=== PATIENT | male | born 1960 | race Caucasian/White ===

== ENCOUNTER 2023-10-25 20:04 | Observation (INO) ==
--- NOTE | 2023-10-25 20:46 | Emergency Department Note ---
Impression & Plan Abdominal pain ADMIT ED Provider Note HPI: History obtained from patient and patient's son at the bedside. The patient is a 63-year-old gentleman with history of metastatic prostate cancer, recently taken off chemo and radiation therapy with plan now for hospice care, presents the emergency department with lower abdominal pain that has been severe over about the past 36 hours. Patient presents with his son at the bedside who is also the POA. He states that his father developed this pain since last night and it has progressively been getting worse. He states they are in the process of planning for hospice care however he is not officially on hospice as of yet. On arrival here to the ED the patient is hemodynamically stable. ROS: - Per HPI Differential Diagnosis: Small bowel obstruction, abdominal pain secondary to metastatic cancer, peritoneal carcinomatosis, rectal mass, amongst other potential pathologies. *Outpatient medications and allergy history reviewed. PE: General: Alert, listless appearing HEENT: Normocephalic, trachea midline Eyes: Extraocular eye movement is intact, no scleral erythema Pulmonary: Clear to auscultation bilaterally, no wheezing Cardio: Regular rate and rhythm GI: Moderate to severe distention of the abdomen that is tender to palpation without rigidity : No suprapubic tenderness MSK: No evidence of trauma or malformation of the extremities, no edema Skin: No evidence of rash Neuro: Alert, no focal deficits Psychiatric: Cooperative INDEPENDENT INTERPRETATIONS: commissioning editor: (As interpreted by myself): - An order was placed for continuous cardiac monitoring - Patient was noted to be in sinus rhythm with a rate of 95 EKG: (As interpreted by myself): Rate: 105 Rhythm: Sinus tachycardia Intervals: Within normal limits ST changes: No ST elevation Time: 2028 Interventions provided in ED: -IV morphine, normal saline with potassium Medical Decision Making: IV was established and lab work obtained, patient was placed on systems security consultant. Lab work shows no leukocytosis, hemoglobin is stable at 10.3, platelet count is slightly elevated at 468, CMP shows hypokalemia 2.9, otherwise no critical findings are noted, troponin is negative. EKG does not show any acute ischemic changes. Patient does have significant abdominal distention on exam, CT imaging of the abdomen pelvis was obtained that shows evidence of a necrotic appearing rectal mass causing distention of the colon filled with stool and gas. I suspect this is the source of the patient's discomfort. I discussed all the above findings with the patient and his son at the bedside. At this time the patient's son states that the goal is comfort measures only. He states that they would like to arrange hospice at home so that the patient can pass peacefully at home as is his wish. At this time I do feel the patient will require admission for pain control with IV medications until home hospice can be arranged. Patient's son is in agreement. I discussed the patient's presentation with the on-call hospitalist, Dr. Brewster, and the patient was placed for admission in stable condition. Consultants/Discussions held with other healthcare providers: -Hospitalist, Dr. Brewster Disposition discussion held by myself with: -Patient and patient's son at the bedside Diagnosis: 1. History of metastatic prostate cancer 2. Large bowel obstruction secondary to rectal mass 3. Abdominal pain, acute on chronic Disposition: ADMIT Lowell Topete DO Emergency Medicine Past Med/Surg History Problem List (Updated 10/25/23 @ 23:55 by Lowell Topete DO) Abdominal pain (Acute) Social History Smoking Status: Current some day smoker Feels Safe at Home: Yes Allergies Allergies Allergy/AdvReac Type Severity Reaction Status Date / Time [id number] Allergy Unknown Uncoded 05/17/04 00:45 Home Meds Home Medications Medication Instructions Recorded Confirmed nitrofurantoin macrocrystal 50 mg 50 mg PO QID 10/25/23 10/25/23 capsule oxycodone 5 mg tablet 5 mg PO Q6H PRN Pain 10/25/23 10/25/23 polyethylene glycol 3350 17 gram 17 g PO DAILY 10/25/23 10/25/23 oral powder packet (Miralax) Results & Data (ED) Vital Signs Vital Signs - 24 hr 10/25/23 20:08 10/25/23 20:22 10/25/23 20:23 Temperature 36.7 C Temperature Source Temporal Artery Scan Pulse Rate 126 H 103 H Pulse Rate [Apical] 104 H Pulse Rhythm Regular Pulse Strength Normal Respiratory Rate 20 15 16 Respiratory Effort / Characteristics Non-Labored Spontaneous Blood Pressure 127/77 Blood Pressure [Left Arm] Blood Pressure Mean 93 Blood Pressure Mean [Left Arm] Blood Pressure Position Sitting Pulse Oximetry 97 97 97 Oxygen Delivery Method Room Air Room Air Room Air Sepsis Recent Fever Within 48 Hours No Sepsis New/Unexplained Change in Mental Status N/A Sepsis Action Taken by Nursing No Action Required 10/25/23 20:25 10/25/23 20:27 10/25/23 21:39 Temperature Temperature Source Pulse Rate 103 H Pulse Rate [Apical] 99 H 94 H Pulse Rhythm Pulse Strength Respiratory Rate 18 22 Respiratory Effort / Characteristics Blood Pressure Blood Pressure [Left Arm] 134/83 146/78 H Blood Pressure Mean Blood Pressure Mean [Left Arm] 100 100 Blood Pressure Position Pulse Oximetry 97 99 Oxygen Delivery Method Room Air Room Air Sepsis Recent Fever Within 48 Hours Sepsis New/Unexplained Change in Mental Status Sepsis Action Taken by Nursing 10/25/23 22:00 10/25/23 23:00 Temperature Temperature Source Pulse Rate Pulse Rate [Apical] 90 100 H Pulse Rhythm Pulse Strength Respiratory Rate 20 15 Respiratory Effort / Characteristics Blood Pressure Blood Pressure [Left Arm] 148/75 H 145/80 H Blood Pressure Mean Blood Pressure Mean [Left Arm] 99 101 Blood Pressure Position Pulse Oximetry 97 97 Oxygen Delivery Method Room Air Room Air Sepsis Recent Fever Within 48 Hours Sepsis New/Unexplained Change in Mental Status Sepsis Action Taken by Nursing Laboratory Data 10/25/23 20:35 10/25/23 20:35 Lab Results 10/25/23 Range/Units 20:35 WBC 10.48 (4.8-10.8) K/ul RBC 3.45 L (4.70-6.10) M/uL Hgb 10.3 L (14.0-18.0) g/dl Hct 31.1 L (42.0-52.0) % MCV 90.1 (80.0-100.0) fL MCH 29.9 (25.0-34.0) pg MCHC 33.1 (32.0-36.0) g/dL RDW Std Deviation 43.1 (36.4-46.3) fL RDW Coeff of Surinder 13.2 (11.5-14.5) % Plt Count 468 H (130-400) K/uL MPV 10.1 (9.4-12.4) fL Immature Gran % (Auto) 0.4 % Neut % (Auto) 73.9 % Lymph % (Auto) 17.0 % Rock % (Auto) 7.3 % Eos % (Auto) 1.0 % Baso % (Auto) 0.4 % Neut # (Auto) 7.75 H (1.40-6.50) K/uL Lymph # (Auto) 1.78 (1.20-3.40) K/uL Rock # (Auto) 0.76 H (0.11-0.59) K/uL Eos # (Auto) 0.11 (0.00-0.50) K/uL Baso # (Auto) 0.04 (0.00-0.20) K/uL Immature Gran # (Auto) 0.04 (0.01-0.20) K/uL PT 10.9 (9.0-12.0) Seconds INR 1.0 (0.9-1.1) Sodium 135 L (136-145) mmol/L Potassium 2.9 L (3.5-5.1) mmol/L Chloride 104 (98-107) mmol/L Carbon Dioxide 24 (21-32) mmol/L Anion Gap 7 (3-11) BUN 12 (6-23) mg/dl Creatinine 0.52 L (0.6-1.4) mg/dl Est Cr Clr Drug Dosing 140.3 ml/min Est GFR ( Amer) 130.6 ml/min Est GFR (Non-Af Amer) 112.7 ml/min BUN/Creatinine Ratio 23.1 H (10-20) Glucose 111 H (70-99(Fasting)) mg/dl Lactate 1.1 (0.4-2.0) mmol/L Calcium 8.2 L (8.6-10.3) mg/dl Total Bilirubin 0.4 (0.2-1.0) mg/dl AST 16 (13-39) U/L ALT 5 L (7-52) U/L Alkaline Phosphatase 78 (34-104) U/L Troponin I High Sens 4.7 (0-20) pg/ml Total Protein 5.3 L (6.0-8.3) gm/dl Albumin 3.1 L (3.4-5.0) gm/dl Globulin 2.2 L (2.5-4.0) gm/dl Albumin/Globulin Ratio 1.4 (0.9-2) Lipase 8 L (11-82) U/L Administered Medications Potassium Chloride/Sodium Chloride (Normal Saline W/20 Meq Kcl) 20 meq in 1,000 mls @ 200 mls/hr IV .Q5H [facility]; Protocol Stop: 11/24/23 22:14 Last Admin: 10/25/23 22:22 Dose: 200 mls/hr Documented By: ARMANDO Discontinued Medications Sodium Chloride (Nss) 1,000 mls @ 999 mls/hr IV .Q1H1M ONE Stop: 10/25/23 21:38 Last Infusion: 10/25/23 21:54 Dose: Infused Documented By: Admin: 10/25/23 20:48 Dose: 999 mls/hr Documented By: ARMANDO Ioversol (Optiray 320 100ml) 91 ml IV ONCE ONE Stop: 10/25/23 21:57 Last Admin: 10/25/23 21:57 Dose: 91 ml Documented By: HOWARD Morphine Sulfate (Morphine Sulfate 4 Mg/Ml 1 Ml Carp\Vial) 4 mg IV NOW STA Stop: 10/25/23 20:39 Last Admin: 10/25/23 20:47 Dose: 4 mg Documented By: ARMANDO Imaging Data Radiologist's Impression: Abdomen/Pelvis CT 10/25/23 20:38 Exam(s): CT ABDOMEN + PELVIS With Contrast IV Amt: 91ml EXAM: CT Abdomen and Pelvis With Intravenous Contrast CLINICAL HISTORY: Abdominal Pain/distention, hx of metastatic CA. TECHNIQUE: Axial computed tomography images of the abdomen and pelvis with intravenous contrast. CTDI is 19.56 mGy and DLP is 1079.28 mGy-cm. Automated exposure control was utilized for the study. A dose lowering technique was utilized adhering to the principles of ALARA. CONTRAST: Patient received 91ml of IV contrast COMPARISON: No relevant prior studies available. FINDINGS: Lung bases: Unremarkable. No mass. No consolidation. ABDOMEN: Liver: Mild intrahepatic delay ductal dilatation is nonspecific. Gallbladder and bile ducts: Unremarkable. No calcified stones. No ductal dilation. Pancreas: Unremarkable. No mass. No ductal dilation. Spleen: Unremarkable. No splenomegaly. Adrenals: Unremarkable. No mass. Kidneys and ureters: Unremarkable. No solid mass. No hydronephrosis. Stomach and bowel: There is a heterogeneous and presumed partially necrotic mass of the rectum measuring 11.5 x 10.7 cm. This results in significant distention of the colon with gas and stool. The rectal mass abuts the decompressed urinary bladder. Diverticulosis. PELVIS: Appendix: Normal appendix. Bladder: A Scherer catheter is noted. Reproductive: Unremarkable as visualized. ABDOMEN and PELVIS: Intraperitoneal space: A small moderate free fluid in the abdomen and pelvis is nonspecific. No free air. Bones/joints: No acute fracture. No dislocation. Soft tissues: Unremarkable. Vasculature: Moderate atherosclerosis. No abdominal aortic aneurysm. Lymph nodes: Unremarkable. No enlarged lymph nodes. IMPRESSION: 1. There is a heterogeneous and presumed partially necrotic mass of the rectum measuring 11.5 x 10.7 cm. This results in significant distention of the colon with gas and stool. No evidence of perforation. 2. The rectal mass abuts the decompressed urinary bladder. Cannot exclude fistula. 3. A small moderate free fluid in the abdomen and pelvis is nonspecific. 4. Mild intrahepatic delay ductal dilatation is nonspecific. 5. Diverticulosis. Electronically signed by: Camryn Cummings MD 10/25/23 22:53 PM Discharge Plan Visit Data Chief Complaint: Constipation Stated Complaint: CANCER PATIENT, ABD PAIN/FIRM, UTI, CONSTIPATION ED Provider: Lowell Topete Discharge Problem: Abdominal pain Forms Stand Alone [facility]: [facility] Prescriptions Prescriptions: No Action nitrofurantoin macrocrystal 50 mg Capsule 50 mg PO QID polyethylene glycol 3350 [Miralax] 17 gram Powder In Packet 17 g PO DAILY oxycodone 5 mg Tablet 5 mg PO Q6H PRN (Reason: Pain) Referrals Referrals: Lukas Valiente [Primary Care Provider] -
[2023-10-25] MEDS: MoRPHine SULFATE 4 MG/ML 1 ML CARP\\VIAL IV STA (20:47)
[2023-10-25] MEDS: SODIUM CHLORIDE 0.9% 1,000 ML IV ONE (20:48)
[2023-10-25 21:15] LABS: Albumin Globulin Ratio 1.4 (0.9-2); Albumin Level 3.1 gm/dl (3.4-5.0); BUN Creatinine Ratio 23.1 (10-20); Bilirubin,Total 0.4 mg/dl (0.2-1.0); Calcium 8.2 mg/dl (8.6-10.3); Creatinine Clr Calc Pharmacy 140.3 ml/min; Est GFR (African American) 130.6 ml/min; Est GFR (Non-African American) 112.7 ml/min; Globulin 2.2 gm/dl (2.5-4.0); Potassium 2.9 mmol/L (3.5-5.1); Total Protein 5.3 gm/dl (6.0-8.3)
[2023-10-25 21:19] LABS: Basophils # (auto) 0.04 K/uL (0.00-0.20); Basophils % (auto) 0.4 %; Eosinophils # (auto) 0.11 K/uL (0.00-0.50); Hematocrit (blood only) 31.1 % (42.0-52.0); Hemoglobin 10.3 g/dl (14.0-18.0); Immature Granulocytes # (auto) 0.04 K/uL (0.01-0.20); Immature Granulocytes % (auto) 0.4 %; Lymphocytes # (auto) 1.78 K/uL (1.20-3.40); Mean Corpuscular Hemoglobin 29.9 pg (25.0-34.0); Mean Corpuscular Hgb Conc 33.1 g/dL (32.0-36.0); Mean Corpuscular Volume 90.1 fL (80.0-100.0); Mean Platelet Volume 10.1 fL (9.4-12.4); Monocytes # (auto) 0.76 K/uL (0.11-0.59); Monocytes % (auto) 7.3 %; Neutrophils # (auto) 7.75 K/uL (1.40-6.50); Neutrophils % (auto) 73.9 %; Platelet Count 468 K/uL (130-400); RDW Coefficient of Variation 13.2 % (11.5-14.5); RDW Standard Deviation 43.1 fL (36.4-46.3); Red Blood Count 3.45 M/uL (4.70-6.10); White Blood Count 10.48 K/ul (4.8-10.8)
[2023-10-25 21:22] LABS: Troponin I High Sensitivity 4.7 pg/ml (0-20)
[2023-10-25 21:25] LABS: Prothrombin Time 10.9 Seconds (9.0-12.0)
[2023-10-25] MEDS: OPTIRAY 320 100ml IV ONE (21:57)
[2023-10-25] MEDS: NSS + 20MEQ KCL 20 MEQ/1,000 ML BAG IV SCH (22:22)
--- NOTE | 2023-10-25 22:53 | CT Scan Report ---
Exam(s): CT ABDOMEN + PELVIS With Contrast IV Amt: 91ml EXAM: CT Abdomen and Pelvis With Intravenous Contrast CLINICAL HISTORY: Abdominal Pain/distention, hx of metastatic CA. TECHNIQUE: Axial computed tomography images of the abdomen and pelvis with intravenous contrast. CTDI is 19.56 mGy and DLP is 1079.28 mGy-cm. Automated exposure control was utilized for the study. A dose lowering technique was utilized adhering to the principles of ALARA. CONTRAST: Patient received 91ml of IV contrast COMPARISON: No relevant prior studies available. FINDINGS: Lung bases: Unremarkable. No mass. No consolidation. ABDOMEN: Liver: Mild intrahepatic delay ductal dilatation is nonspecific. Gallbladder and bile ducts: Unremarkable. No calcified stones. No ductal dilation. Pancreas: Unremarkable. No mass. No ductal dilation. Spleen: Unremarkable. No splenomegaly. Adrenals: Unremarkable. No mass. Kidneys and ureters: Unremarkable. No solid mass. No hydronephrosis. Stomach and bowel: There is a heterogeneous and presumed partially necrotic mass of the rectum measuring 11.5 x 10.7 cm. This results in significant distention of the colon with gas and stool. The rectal mass abuts the decompressed urinary bladder. Diverticulosis. PELVIS: Appendix: Normal appendix. Bladder: A Scherer catheter is noted. Reproductive: Unremarkable as visualized. ABDOMEN and PELVIS: Intraperitoneal space: A small moderate free fluid in the abdomen and pelvis is nonspecific. No free air. Bones/joints: No acute fracture. No dislocation. Soft tissues: Unremarkable. Vasculature: Moderate atherosclerosis. No abdominal aortic aneurysm. Lymph nodes: Unremarkable. No enlarged lymph nodes. IMPRESSION: 1. There is a heterogeneous and presumed partially necrotic mass of the rectum measuring 11.5 x 10.7 cm. This results in significant distention of the colon with gas and stool. No evidence of perforation. 2. The rectal mass abuts the decompressed urinary bladder. Cannot exclude fistula. 3. A small moderate free fluid in the abdomen and pelvis is nonspecific. 4. Mild intrahepatic delay ductal dilatation is nonspecific. 5. Diverticulosis. Electronically signed by: Camryn Cummings MD 10/25/23 22:53 PM
--- NOTE | 2023-10-26 01:01 | History & Physical Report ---
Date of Service October 26, 2023 Assessment & Plan (1) Primary prostate cancer with metastasis from prostate to other site: Plan: Colonic and bladder extension as per family chronic systolic heart failure recurrent UTIs/history of rectovesical fistula, ongoing Macrobid Rx past tobacco/alcohol abuse OBS GMF Comfort care until home hospice arrangements in place Social service re: discharge planning once home hospice arrangements in place DNR as per prior directives Patient's son requesting updates providers. Mr. Antonino Dubois, contact #[phone]. Text document was generated using [employer] voice recognition software. It may contain grammatical or spelling errors. Kindly contact undersigned for clarification of any documentation item in question. History of Present Illness Chief Complaint: Abdominal pain Primary Care Provider: [facility] History obtained from patient, family, and records. History somewhat limited from patient secondary to confusion. Medical history significant for chronic systolic heart failure, metastatic prostate cancer status post Rx (possible colon and bladder spread as per family), recurrent UTIs, history of rectovesical fistula, past tobacco/alcohol abuse. Patient diagnosed to have prostate cancer 3 years ago. Initially treated with oral medications as per son. Prostate cancer became treatment resistant last year as per family. 3 months ago, family made aware of possible spread to the colon. Patient admitted at [facility] 2 months ago for septic shock secondary to possible perforated bowel. Patient discharged to home hospice because patient doctors did not think he would be a good surgical candidate for extensive cancer surgery. Patient dis-enrolled from hospice last month because he wanted to try taking pills for his cancer again. Recent admission at the [facility] in [place] few days ago for recurrent UTI. Patient discharged home on Macrobid course for unrecalled pathogen. Palliative care and home hospice re-enrollment recommended on discharge. Patient and family supposed to meet with [facility] hospice agency at home today for initial intake. Patient experienced unbearable abdominal pain at home tonight. Home oxycodone pill not enough as per family. Denies chest pain, SOB. Bowel incontinence and persistent hematuria as per son. Patient has had episodic confusion/cognitive issues following confinement at [facility] months ago. Patient brought to ER for evaluation. Patient family requesting for patient admission for comfort care until home hospice arrangements in place. 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[employer] Allergies Allergy/AdvReac Type Severity Reaction Status Date / Time No Known Allergies Allergy Verified 10/26/23 01:48 Home Medications Medication Instructions Recorded Confirmed Type nitrofurantoin macrocrystal 50 mg 50 mg PO QID 10/25/23 10/25/23 History capsule oxycodone 5 mg tablet 5 mg PO Q6H PRN Pain 10/25/23 10/25/23 History polyethylene glycol 3350 17 gram 17 g PO DAILY 10/25/23 10/25/23 History oral powder packet (Miralax) Past Med/Surg History Problem List (Updated 10/26/23 @ 04:04 by Efrain Brewster MD) Primary prostate cancer with metastasis from prostate to other site Abdominal pain (Acute) Social History Smoking Status: Current some day smoker Feels Safe at Home: Yes Review of Systems Review of Systems: As per HPI, all other systems reviewed and negative Physical Exam Physical Exam: GENERAL: Episodic confusion, slightly hard of hearing, chronically ill, no respiratory distress SKIN: Pallor, warm HEENT: Pale palpebral conjunctivae, no ptosis, dry buccal mucosa NECK : Supple, no tenderness CHEST : Decreased breath sounds, no tenderness HEART : RRR, no obvious murmurs ABDOMEN: Marked abdominal distention, hypogastric tenderness EXTREMITIES : No LE swelling/tenderness, no other conspicuous deformities noted NEUROLOGIC : Episodic confusion, no facial asymmetry, mild hearing impairment, no other gross focality Results & Data Results & Data Vital Signs (Past 12 Hours) Vital Signs Temp Pulse Pulse Resp BP BP Pulse Ox 10/26/23 00:28 96 H 10/26/23 00:01 98 H 18 141/88 H 97 10/25/23 23:00 100 H 15 145/80 H 97 10/25/23 22:00 90 20 148/75 H 97 10/25/23 21:39 94 H 22 146/78 H 99 10/25/23 20:27 103 H 10/25/23 20:25 99 H 18 134/83 97 10/25/23 20:23 103 H 16 97 10/25/23 20:22 104 H 15 97 10/25/23 20:08 36.7 C 126 H 20 127/77 97 O2 Del Method 10/26/23 00:28 10/26/23 00:01 Room Air 10/25/23 23:00 Room Air 10/25/23 22:00 Room Air 10/25/23 21:39 Room Air 10/25/23 20:27 10/25/23 20:25 Room Air 10/25/23 20:23 Room Air 10/25/23 20:22 Room Air 10/25/23 20:08 Room Air Laboratory Results Laboratory Results WBC 10.48 K/ul (4.8-10.8) 10/25/23 20:35 RBC 3.45 M/uL (4.70-6.10) L 10/25/23 20:35 Hgb 10.3 g/dl (14.0-18.0) L 10/25/23 20:35 Hct 31.1 % (42.0-52.0) L 10/25/23 20:35 MCV 90.1 fL (80.0-100.0) 10/25/23 20:35 MCH 29.9 pg (25.0-34.0) 10/25/23 20:35 MCHC 33.1 g/dL (32.0-36.0) 10/25/23 20:35 RDW Std Deviation 43.1 fL (36.4-46.3) 10/25/23 20:35 RDW Coeff of Surinder 13.2 % (11.5-14.5) 10/25/23 20:35 Plt Count 468 K/uL (130-400) H 10/25/23 20:35 MPV 10.1 fL (9.4-12.4) 10/25/23 20:35 Immature Gran % (Auto) 0.4 % 10/25/23 20:35 Neut % (Auto) 73.9 % 10/25/23 20:35 Lymph % (Auto) 17.0 % 10/25/23 20:35 Addison % (Auto) 7.3 % 10/25/23 20:35 Eos % (Auto) 1.0 % 10/25/23 20:35 Baso % (Auto) 0.4 % 10/25/23 20:35 Neut # (Auto) 7.75 K/uL (1.40-6.50) H 10/25/23 20:35 Lymph # (Auto) 1.78 K/uL (1.20-3.40) 10/25/23 20:35 Addison # (Auto) 0.76 K/uL (0.11-0.59) H 10/25/23 20:35 Eos # (Auto) 0.11 K/uL (0.00-0.50) 10/25/23 20:35 Baso # (Auto) 0.04 K/uL (0.00-0.20) 10/25/23 20:35 Immature Gran # (Auto) 0.04 K/uL (0.01-0.20) 10/25/23 20:35 PT 10.9 Seconds (9.0-12.0) 10/25/23 20:35 INR 1.0 (0.9-1.1) 10/25/23 20:35 Sodium 135 mmol/L (136-145) L 10/25/23 20:35 Potassium 2.9 mmol/L (3.5-5.1) L 10/25/23 20:35 Chloride 104 mmol/L (98-107) 10/25/23 20:35 Carbon Dioxide 24 mmol/L (21-32) 10/25/23 20:35 Anion Gap 7 (3-11) 10/25/23 20:35 BUN 12 mg/dl (6-23) 10/25/23 20:35 Creatinine 0.52 mg/dl (0.6-1.4) L 10/25/23 20:35 Est Cr Clr Drug Dosing 140.3 ml/min 10/25/23 20:35 Est GFR ( Amer) 130.6 ml/min 10/25/23 20:35 Est GFR (Non-Af Amer) 112.7 ml/min 10/25/23 20:35 BUN/Creatinine Ratio 23.1 (10-20) H 10/25/23 20:35 Glucose 111 mg/dl (70-99(Fasting)) H 10/25/23 20:35 Lactate 1.1 mmol/L (0.4-2.0) 10/25/23 20:35 Calcium 8.2 mg/dl (8.6-10.3) L 10/25/23 20:35 Total Bilirubin 0.4 mg/dl (0.2-1.0) 10/25/23 20:35 AST 16 U/L (13-39) 10/25/23 20:35 ALT 5 U/L (7-52) L 10/25/23 20:35 Alkaline Phosphatase 78 U/L (34-104) 10/25/23 20:35 Troponin I High Sens 4.7 pg/ml (0-20) 10/25/23 20:35 Total Protein 5.3 gm/dl (6.0-8.3) L 10/25/23 20:35 Albumin 3.1 gm/dl (3.4-5.0) L 10/25/23 20:35 Globulin 2.2 gm/dl (2.5-4.0) L 10/25/23 20:35 Albumin/Globulin Ratio 1.4 (0.9-2) 10/25/23 20:35 Lipase 8 U/L (11-82) L 10/25/23 20:35 Impressions Abdomen/Pelvis CT 10/25/23 20:38 Exam(s): CT ABDOMEN + PELVIS With Contrast IV Amt: 91ml EXAM: CT Abdomen and Pelvis With Intravenous Contrast CLINICAL HISTORY: Abdominal Pain/distention, hx of metastatic CA. TECHNIQUE: Axial computed tomography images of the abdomen and pelvis with intravenous contrast. CTDI is 19.56 mGy and DLP is 1079.28 mGy-cm. Automated exposure control was utilized for the study. A dose lowering technique was utilized adhering to the principles of ALARA. CONTRAST: Patient received 91ml of IV contrast COMPARISON: No relevant prior studies available. FINDINGS: Lung bases: Unremarkable. No mass. No consolidation. ABDOMEN: Liver: Mild intrahepatic delay ductal dilatation is nonspecific. Gallbladder and bile ducts: Unremarkable. No calcified stones. No ductal dilation. Pancreas: Unremarkable. No mass. No ductal dilation. Spleen: Unremarkable. No splenomegaly. Adrenals: Unremarkable. No mass. Kidneys and ureters: Unremarkable. No solid mass. No hydronephrosis. Stomach and bowel: There is a heterogeneous and presumed partially necrotic mass of the rectum measuring 11.5 x 10.7 cm. This results in significant distention of the colon with gas and stool. The rectal mass abuts the decompressed urinary bladder. Diverticulosis. PELVIS: Appendix: Normal appendix. Bladder: A Scherer catheter is noted. Reproductive: Unremarkable as visualized. ABDOMEN and PELVIS: Intraperitoneal space: A small moderate free fluid in the abdomen and pelvis is nonspecific. No free air. Bones/joints: No acute fracture. No dislocation. Soft tissues: Unremarkable. Vasculature: Moderate atherosclerosis. No abdominal aortic aneurysm. Lymph nodes: Unremarkable. No enlarged lymph nodes. IMPRESSION: 1. There is a heterogeneous and presumed partially necrotic mass of the rectum measuring 11.5 x 10.7 cm. This results in significant distention of the colon with gas and stool. No evidence of perforation. 2. The rectal mass abuts the decompressed urinary bladder. Cannot exclude fistula. 3. A small moderate free fluid in the abdomen and pelvis is nonspecific. 4. Mild intrahepatic delay ductal dilatation is nonspecific. 5. Diverticulosis. Electronically signed by: Camryn Cummings MD 10/25/23 22:53 PM Diagnostic Findings EKG as per my interpretation : Rate 105, sinus tachycardia, normal axis, nonspecific T wave abnormalities
[2023-10-26] MEDS ORDERED: LORazepam 0.5 MG in SYRINGE 0.5 ML IV PRN (01:05)
[2023-10-26] MEDS ORDERED: MoRPHine SULFATE 4 MG/ML 1 ML CARP\\VIAL IV PRN (01:05)
[2023-10-26] MEDS ORDERED: ONDANSETRON INJ 2 MG/ML 2 ML VIAL IV PRN (01:05)
[2023-10-26] MEDS: Patient's ALLERGY Info needs ENTERED STA (01:51)
[2023-10-26] MEDS: NSS + 20MEQ KCL 20 MEQ/1,000 ML BAG IV ONE (01:53)
[2023-10-26] MEDS: MoRPHine SULFATE 4 MG/ML 1 ML CARP\\VIAL IV STA (01:53)
[2023-10-26] MEDS: MoRPHine SULFATE 4 MG/ML 1 ML CARP\\VIAL IV PRN (03:46)
[2023-10-26] MEDS: nitrofurantoin macrocrystaL 50 MG CAP PO SCH (07:44)
--- NOTE | 2023-10-26 08:54 | Palliative Care Consultation ---
Date of Consultation October 26, 2023 Assessment & Plan (1) Cancer related pain: As needed morphine is providing adequate relief. Patient feels significant relief since a large bowel movement early this morning. (2) Dyspnea and respiratory abnormalities: (3) Encounter for end of life care: (4) Need for comfort care: (5) Palliative care by specialist: Plan * Gato does not want any changes to his current regimen. * Vineet advised they have morphine at home and do not need any prescriptions at this time. He has spoken with hospice who advised they can see patient today at 2 PM for admission to home hospice. He would like a discharge coordinated so that he is able to make the 2:00 appointment with hospice at home. * I have updated primary team and case management. Thank you for allowing us to participate in the ongoing care of this patient. Please page with any additional concerns. Rinku Elizabeth DNP Director, Palliative Medicine History of Present Illness Reason for Consultation: comfort care Attending Physician: German Manley MD History of Present Illness Gato is a 63yo gentleman with history of metastatic prostate cancer, recently taken off chemo and radiation therapy with plan now for hospice care, presents the emergency department with lower abdominal pain that has been severe over about the past 36 hours. pt son had advised ED that they are in the process of planning for hospice care. PMH: chronic systolic heart failure; recurrent UTIs/history of rectovesical fistula, ongoing Macrobid Rx; past tobacco/alcohol abuse;OBS; GMF. Gato is seen at bedside together with his son Ambrose who is also his POA There is no other family present Gato had a significant bowel movement earlier this morning and since then, his abdominal pain has significantly improved. Ambrose suspects that overall the increased pain may have been due to a constipation. Ambrose shares the patient had been admitted to hospice, through [facility], in the past but then revoked hospice when he decided he wanted to pursue continued cancer directed therapy. Since that time, his condition has progressively declined and he has been advised by oncology that he is no longer candidate for cancer directed therapies and was recommended to pursue home care with hospice. Antonino was already contacted the hospice agency and plans to resume care with them. They have advised our care management team they can admit him today at 2 PM. Ambrose advises that he and dad would like to go home today as it would be more comfortable and provide a better quality of life. Allergies Allergy/AdvReac Type Severity Reaction Status Date / Time No Known Allergies Allergy Verified 10/26/23 01:48 Home Medications Medication Instructions Recorded Confirmed Type nitrofurantoin macrocrystal 50 mg 50 mg PO QID 10/25/23 10/25/23 History capsule oxycodone 5 mg tablet 5 mg PO Q6H PRN Pain 10/25/23 10/25/23 History polyethylene glycol 3350 17 gram 17 g PO DAILY 10/25/23 10/25/23 History oral powder packet (Miralax) Patient History Social History Smoking Status: Current some day smoker Tobacco Type: Cigarettes Hx Alcohol Use: No Hx Substance Use: No Preferred Language: Monegasque Communication Ability: Effective Software Development Manager Required: No Beliefs That Will Affect Care: None Current Living Situation: Family Current Living Situation Comment: living at home with son staying to help Feels Safe at Home: Yes Assistive Devices: None Review of Systems Review of Systems: Unobtainable due to cognitive status and Unobtainable due to reduced consciousness Physical Exam Physical Exam: Limited exam, patient did not allow for in-depth. He is resting in bed, no acute distress. There is bitemporal wasting. PERRLA, EOMI's. Neck is supple, no stridor. Respirations even and unlabored. There is no conversational dyspnea. Limited anterior exam reveals diminished but overall clear breath soun ds. Abdomen scaphoid but soft. Deconditioned throughout with generalized weakness. Muscle wasting noted. Skin is pale and somewhat cool to touch. There is no gross cyanosis or mottling. He is awake alert and oriented x 3. He is quite fatigued appearing. Results & Data Vital Signs (Past 12 Hours) Vital Signs Pulse Pulse Resp BP Pulse Ox O2 Del Method 10/26/23 07:50 Room Air 10/26/23 03:30 Room Air 10/26/23 02:14 95 H 20 96 Room Air 10/26/23 00:28 96 H 10/26/23 00:01 98 H 18 141/88 H 97 Room Air 10/25/23 23:00 100 H 15 145/80 H 97 Room Air 10/25/23 22:00 90 20 148/75 H 97 Room Air 10/25/23 21:39 94 H 22 146/78 H 99 Room Air Laboratory Results 10/25/23 Range/Units 20:35 WBC 10.48 (4.8-10.8) K/ul RBC 3.45 L (4.70-6.10) M/uL Hgb 10.3 L (14.0-18.0) g/dl Hct 31.1 L (42.0-52.0) % MCV 90.1 (80.0-100.0) fL MCH 29.9 (25.0-34.0) pg MCHC 33.1 (32.0-36.0) g/dL RDW Std Deviation 43.1 (36.4-46.3) fL RDW Coeff of Surinder 13.2 (11.5-14.5) % Plt Count 468 H (130-400) K/uL MPV 10.1 (9.4-12.4) fL Immature Gran % (Auto) 0.4 % Neut % (Auto) 73.9 % Lymph % (Auto) 17.0 % Glades % (Auto) 7.3 % Eos % (Auto) 1.0 % Baso % (Auto) 0.4 % Neut # (Auto) 7.75 H (1.40-6.50) K/uL Lymph # (Auto) 1.78 (1.20-3.40) K/uL Glades # (Auto) 0.76 H (0.11-0.59) K/uL Eos # (Auto) 0.11 (0.00-0.50) K/uL Baso # (Auto) 0.04 (0.00-0.20) K/uL Immature Gran # (Auto) 0.04 (0.01-0.20) K/uL PT 10.9 (9.0-12.0) Seconds INR 1.0 (0.9-1.1) Sodium 135 L (136-145) mmol/L Potassium 2.9 L (3.5-5.1) mmol/L Chloride 104 (98-107) mmol/L Carbon Dioxide 24 (21-32) mmol/L Anion Gap 7 (3-11) BUN 12 (6-23) mg/dl Creatinine 0.52 L (0.6-1.4) mg/dl Est Cr Clr Drug Dosing 140.3 ml/min Est GFR ( Amer) 130.6 ml/min Est GFR (Non-Af Amer) 112.7 ml/min BUN/Creatinine Ratio 23.1 H (10-20) Glucose 111 H (70-99(Fasting)) mg/dl Lactate 1.1 (0.4-2.0) mmol/L Calcium 8.2 L (8.6-10.3) mg/dl Total Bilirubin 0.4 (0.2-1.0) mg/dl AST 16 (13-39) U/L ALT 5 L (7-52) U/L Alkaline Phosphatase 78 (34-104) U/L Troponin I High Sens 4.7 (0-20) pg/ml Total Protein 5.3 L (6.0-8.3) gm/dl Albumin 3.1 L (3.4-5.0) gm/dl Globulin 2.2 L (2.5-4.0) gm/dl Albumin/Globulin Ratio 1.4 (0.9-2) Lipase 8 L (11-82) U/L Diagnostic Findings Abdomen/Pelvis CT 10/25/23 20:38 Exam(s): CT ABDOMEN + PELVIS With Contrast IV Amt: 91ml EXAM: CT Abdomen and Pelvis With Intravenous Contrast CLINICAL HISTORY: Abdominal Pain/distention, hx of metastatic CA. TECHNIQUE: Axial computed tomography images of the abdomen and pelvis with intravenous contrast. CTDI is 19.56 mGy and DLP is 1079.28 mGy-cm. Automated exposure control was utilized for the study. A dose lowering technique was utilized adhering to the principles of ALARA. CONTRAST: Patient received 91ml of IV contrast COMPARISON: No relevant prior studies available. FINDINGS: Lung bases: Unremarkable. No mass. No consolidation. ABDOMEN: Liver: Mild intrahepatic delay ductal dilatation is nonspecific. Gallbladder and bile ducts: Unremarkable. No calcified stones. No ductal dilation. Pancreas: Unremarkable. No mass. No ductal dilation. Spleen: Unremarkable. No splenomegaly. Adrenals: Unremarkable. No mass. Kidneys and ureters: Unremarkable. No solid mass. No hydronephrosis. Stomach and bowel: There is a heterogeneous and presumed partially necrotic mass of the rectum measuring 11.5 x 10.7 cm. This results in significant distention of the colon with gas and stool. The rectal mass abuts the decompressed urinary bladder. Diverticulosis. PELVIS: Appendix: Normal appendix. Bladder: A Scherer catheter is noted. Reproductive: Unremarkable as visualized. ABDOMEN and PELVIS: Intraperitoneal space: A small moderate free fluid in the abdomen and pelvis is nonspecific. No free air. Bones/joints: No acute fracture. No dislocation. Soft tissues: Unremarkable. Vasculature: Moderate atherosclerosis. No abdominal aortic aneurysm. Lymph nodes: Unremarkable. No enlarged lymph nodes. IMPRESSION: 1. There is a heterogeneous and presumed partially necrotic mass of the rectum measuring 11.5 x 10.7 cm. This results in significant distention of the colon with gas and stool. No evidence of perforation. 2. The rectal mass abuts the decompressed urinary bladder. Cannot exclude fistula. 3. A small moderate free fluid in the abdomen and pelvis is nonspecific. 4. Mild intrahepatic delay ductal dilatation is nonspecific. 5. Diverticulosis. Electronically signed by: Camryn Cummings MD 10/25/23 22:53 PM PG Care Time/CCT Total # of Minutes Spent Total Time Spent with Patient: Total time spent is greater than 50% in coordination of care (as documented) at patient's floor/unit and/or counseling patient: I spent 60 minutes overall addressing this case: 10 min in medical data review/discussion with referring provider(s) and/or preparation for the visit 15 min in direct interaction with the patient/exam 10 min in Advance Care Planning/Goals of Care discussions as detailed above in note (must be >16min) 10 min in subsequent review and synthesis of assessment and plan 15 min communicating with other providers regarding the patient's case: [place] [address] IN/OBS CONSULT LVL 4,60M Patient Type New History Comprehensive Exam Comprehensive Medical Decision Making High Complexity Diagnoses Cancer related pain G89.3 Dyspnea and respiratory abnormalities R06.00; R06.89 Encounter for end of life care Z51.5 Need for comfort care Palliative care by specialist Z51.5
--- NOTE | 2023-10-26 11:14 | Communication Note ---
Date of Service: October 26, 2023 Patient was seen and examined at bedside. Patient is currently under comfort care measures, patient has history of primary prostate cancer with metastasis from prostate to other site (possible colon and bladder spread). Patient reports being comfortable and pain fairly under control. Patient awaiting discharge to home with hospice. On examination, patient on room air, abdomen distended, mildly tender on exam, heart and lungs examination fairly WNL. For detailed information on the patient, refer to today's H&P note.
--- NOTE | 2023-10-26 12:05 | Discharge Summary ---
Date of Service October 26, 2023 Admission HPI Per Admitting Provider History obtained from patient, family, and records. History somewhat limited from patient secondary to confusion. Medical history significant for chronic systolic heart failure, metastatic prostate cancer status post Rx (possible colon and bladder spread as per family), recurrent UTIs, history of rectovesical fistula, past tobacco/alcohol abuse. Patient diagnosed to have prostate cancer 3 years ago. Initially treated with oral medications as per son. Prostate cancer became treatment resistant last year as per family. 3 months ago, family made aware of possible spread to the colon. Patient admitted at [facility] 2 months ago for septic shock secondary to possible perforated bowel. Patient discharged to home hospice because patient doctors did not think he would be a good surgical candidate for extensive cancer surgery. Patient dis-enrolled from hospice last month because he wanted to try taking pills for his cancer again. Recent admission at the [facility] in [place] few days ago for recurrent UTI. Patient discharged home on Macrobid course for unrecalled pathogen. Palliative care and home hospice re-enrollment recommended on discharge. Patient and family supposed to meet with [facility] hospice agency at home today for initial intake. Patient experienced unbearable abdominal pain at home tonight. Home oxycodone pill not enough as per family. Denies chest pain, SOB. Bowel incontinence and persistent hematuria as per son. Patient has had episodic confusion/cognitive issues following confinement at [facility] months ago. Patient brought to ER for evaluation. Patient family requesting for patient admission for comfort care until home hospice arrangements in place. 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 Admission Exam Per Admitting Provider GENERAL: Episodic confusion, slightly hard of hearing, chronically ill, no respiratory distress SKIN: Pallor, warm HEENT: Pale palpebral conjunctivae, no ptosis, dry buccal mucosa NECK : Supple, no tenderness CHEST : Decreased breath sounds, no tenderness HEART : RRR, no obvious murmurs ABDOMEN: Marked abdominal distention, hypogastric tenderness EXTREMITIES : No LE swelling/tenderness, no other conspicuous deformities noted NEUROLOGIC : Episodic confusion, no facial asymmetry, mild hearing impairment, no other gross focality Principal Diagnosis Metastatic prostate cancer Discharge Exam GENERAL:alert, slightly hard of hearing, chronically ill, no respiratory distress SKIN: Pallor, warm HEENT: Pale palpebral conjunctivae, no ptosis, moist buccal mucosa NECK : Supple, no tenderness CHEST : Decreased breath sounds, no tenderness HEART : RRR, no obvious murmurs ABDOMEN: Marked abdominal distention, hypogastric tenderness EXTREMITIES : No LE swelling/tenderness, no other conspicuous deformities noted NEUROLOGIC :No facial asymmetry, mild hearing impairment, no other gross focality Discharge Data Allergies Allergy/AdvReac Type Severity Reaction Status Date / Time No Known Allergies Allergy Verified 10/26/23 01:48 Consultations 10/25/23 23:40 ED Decision to Admit Stat 10/26/23 01:08 Consult Palliative Care Routine Ordered Studies 10/25/23 20:38 CT Abd and Pelvis [CT abd pelvis IV con only] Stat Hospital Course (1) Primary prostate cancer with metastasis from prostate to other site: Plan Per prior attending with addendum: (1) Primary prostate cancer with metastasis from prostate to other site: Plan: Colonic and bladder extension as per family chronic systolic heart failure recurrent UTIs/history of rectovesical fistula, ongoing Macrobid Rx past tobacco/alcohol abuse OBS GMF Comfort care until home hospice arrangements in place Social service re: discharge planning once home hospice arrangements in place DNR as per prior directives Patient's son requesting updates providers. Mr. Antonino Dubois, contact #[phone]. Addendum 10/26/2023: Discussed with casework specialist and palliative care, patient is going to home with hospice today. Patient already has comfort care medications at home per Pall, hospice will take over care at 2 PM today. Patient will be discharged today. Text document was generated using [employer] voice recognition software. It may contain grammatical or spelling errors. Kindly contact undersigned for clarification of any documentation item in question. Home Health Attestation I certify that this patient is under my care and that I, or a physicians assist ant working with me, had a face to-face encounter that meets the home health [id number] encounter requirements with this patient. The encounter with the patient was in whole, or in part, for the following medical condition, which is the primary reason for home health care (list medical condition): I certify that, based on my findings, the following services are medically necessary home health services: My clinical findings support the need for the above services because: Further, I certify that my clinical findings support that this patient is homebound (i.e. absences from home require considerable and taxing effort and are for medical reasons or episcopal services or infrequently or of short duration when for other reasons) because: Certification for Home Health Services: Based on the above findings, I certify that this patient is confined to the home and needs intermittent alf care, physical therapy and/or speech therapy or continues to need occupational therapy. The patient is under my care, and I have initiated the establishment of the plan of care. This patient will be followed by a physician who will periodically review the plan of care. Total Time Total Time Spent Total Time Spent (In Minutes): 45 Discharge Plan Discharge Items Patient Disposition: Hospice - Home Reason For Visit: PROSTATE CANCER PAIN, COMFORT CARE Discharge Diagnosis: Metastatic prostate cancer Activity: Resume your previous activity Non-emergency contact: Primary Care Provider Call non-emergency contact if: you have any medication questions Follow-up/Referrals: Lukas Valiente [Primary Care Provider] - Diet: Regular Addtl Attending Provider Instructions: you are being discharged to home with hospice, utilize your home comfort care medications until hospice providers take over patient's care starting 2 PM today. Pending Studies at Discharge: No Stand-Alone Forms: My [facility] [employer], Smoking Cessation Medications and DC Order Prescriptions: Continued nitrofurantoin macrocrystal 50 mg Capsule 50 mg PO QID polyethylene glycol 3350 [Miralax] 17 gram Powder In Packet 17 g PO DAILY oxycodone 5 mg Tablet 5 mg PO Q6H PRN (Reason: Pain) Discharge Orders: Discharge Order (Routine); Ordered 10/26/23 Ordered By: German Manley Admission Data Admit Date/Time: 10/26/23 01:04 Attending Provider: German Manley Admit Provider: Efrain Brewster Primary Care Provider: Lukas Valiente Other Providers: Efrain Brewster; Justa Elizabeth; [facility]
[2023-10-26] MEDS: oxyCODONE HCL IR 5 MG TAB (IMMEDIATE RELEASE) PO PRN (12:17)
--- NOTE | 2023-10-26 22:43 | Electrocardiogram Report ---
Test Reason : Blood Pressure : / mmHG Vent. Rate : 105 BPM Atrial Rate : 105 BPM P-R Int : 138 ms QRS Dur : 078 ms QT Int : 376 ms P-R-T Axes : 054 038 039 degrees QTc Int : 497 ms Sinus tachycardia Nonspecific ST abnormality Prolonged QT No previous ECGs available Confirmed by Barrington Hennessy ([id number]) on 10/26/2023 10:43:19 PM Referred By: Lukas Valiente Confirmed By:Barrington Hennessy
== END 2023-10-26 14:03 | disposition hospice, home (50) ==
LOC: ED 20:04 → 3W 20:04
DX: F17.210 Nicotine dependence, cigarettes, uncomplicated; N39.0 Urinary tract infection, site not specified; D64.9 Anemia, unspecified; Z80.0 Family history of malignant neoplasm of digestive organs; C61 Malignant neoplasm of prostate; G89.3 Neoplasm related pain (acute) (chronic); H91.90 Unspecified hearing loss, unspecified ear; Z66 Do not resuscitate; Z92.3 Personal history of irradiation; E87.6 Hypokalemia; C78.5 Secondary malignant neoplasm of large intestine and rectum; K59.00 Constipation, unspecified; Z51.5 Encounter for palliative care; C79.11 Secondary malignant neoplasm of bladder; I50.22 Chronic systolic (congestive) heart failure; D69.6 Thrombocytopenia, unspecified